=== PATIENT | female | born 1970 | race Caucasian/White ===

== ENCOUNTER 2017-01-07 16:09 | Emergency (ER) | payer OTHER ==
[~2017-01-07] VITALS: Ht 167.6 cm; Wt 54.4 kg
[2017-01-07 16:10] VITALS: BP 150/84; PULSE 92; RESP 19; TEMP 97.2; O2SAT 99
--- NOTE | 2017-01-07 16:10 | NUR ---
Patient triaged and placed in waiting room. VSS and patient appears in no acute distress at this time. Accompanied by FAMILY, awaiting available bed, and MD notified of need for MSE.
[2017-01-07] MEDS ORDERED: ONDANSETRON HCL 4 MG/2 ML VIAL IVP ONE (16:15)
[2017-01-07 16:32] LABS: BASOPHILS # (AUTO) 0.1 K/uL (0.0-0.2); BASOPHILS % (AUTO) 0.7 % (0.0-2.0); EOSINOPHILS # (AUTO) 0.1 K/uL (0.0-0.4); EOSINOPHILS % (AUTO) 0.6 % (0.0-4.0); HEMATOCRIT 37.6 % (36-48); HEMOGLOBIN 12.6 g/dL (12.0-16.0); LYMPHOCYTES % (AUTO) 11.2 % (20.5-51.5); MEAN CORPUSCULAR HEMOGLOBIN 31 pg (27-31); MEAN CORPUSCULAR HGB CONC 34 % (32-36); MEAN CORPUSCULAR VOLUME 91 fL (79.0-98.0); MONOCYTES # (AUTO) 0.4 K/uL (0.0-1.0); MONOCYTES % (AUTO) 4.6 % (1.7-9.3); NEUTROPHILS # (AUTO) 7.3 K/uL (1.8-7.7); NEUTROPHILS % (AUTO) 82.9 % (40.0-70.0); PLATELET COUNT (AUTO) 236 K/uL (130-430); RED BLOOD CELL COUNT(AUTO) 4.11 MIL/uL (4.2-6.2); RED CELL DISTRIBUTION WIDTH 14.1 % (9.0-15.0); WHITE BLOOD COUNT (AUTO) 8.9 K/uL (4.8-10.8)
--- NOTE | 2017-01-07 16:34 | NUR ---
BROUGHT BACK TO BED #5 AND REPORT GIVEN TO LUCINA
--- NOTE | 2017-01-07 16:40 | NUR ---
ASHLIE ROMAN AT BEDSIDE FOR POC.
[2017-01-07 16:49] LABS: POTASSIUM 3.5 mmol/L (3.5-5.1)
[2017-01-07 16:57] LABS: CALCIUM 8.7 mg/dL (8.4-11.0); CREATININE 0.76 mg/dL (0.55-1.30)
[2017-01-07 17:02] LABS: ALBUMIN 3.8 g/dL (3.4-4.8); TOTAL BILIRUBIN 0.3 mg/dL (0.0-1.0); TOTAL PROTEIN, SERUM 6.9 g/dL (6.4-8.3)
[2017-01-07 17:06] LABS: BILIRUBIN,URINE NEGATIVE (NEGATIVE); BLOOD, URINE 3+ (NEGATIVE); CLARITY/URINE HAZY (CLEAR); COLOR,URINE RED (YELLOW); GLUCOSE,URINE NEGATIVE (NEGATIVE); KETONES,URINE NEGATIVE (NEGATIVE); LEUKOCYTE ESTERASE ,URINE 1+ (NEGATIVE); NITRITE, URINE NEGATIVE (NEGATIVE); PROTEIN URINE TRACE (NEGATIVE); UROBILINOGEN,URINE 0.2 (0.2-1.0)
[2017-01-07] MEDS ORDERED: NACL 0.9% 1,000 ML IV ONE (17:15)
--- NOTE | 2017-01-07 17:15 | NUR ---
PT TOLERATING IVF AMD MEDICATION.
[2017-01-07 17:17] LABS: RBC,URINE >100 /HPF (0-3)
[2017-01-07 17:18] LABS: BACTERIA,URINE FEW /HPF (None Seen); MUCUS,URINE None Seen /LPF (None Seen); WBC,URINE 0-3 /HPF (0-3)
--- NOTE | 2017-01-07 18:20 | NUR ---
ATTEMPTED TO DISCHARGE PT, PT STATES SHE DOES NOT FEEL WELL. WILL SEND ASHLIE ROMAN TO TALK TO PT
--- NOTE | 2017-01-07 18:24 | NUR ---
ASHLIE ROMAN AT BEDSIDE FOR RE-EVALUATION
[2017-01-07] MEDS ORDERED: LORazepam 1 MG TABLET PO ONE (18:30)
[2017-01-07 18:35] VITALS: BP 111/61; PULSE 78; RESP 16; TEMP 98; O2SAT 99
--- NOTE | 2017-01-07 18:35 | NUR ---
Patient given written and verbal discharge instructions and verbalizes understanding. ER MD discussed with patient the results and treatment provided. Patient in stable condition. ID arm band removed. IV catheter removed intact and dressing applied, no active bleeding. Rx of Zofran, Cipro given. Patient educated on pain management and to follow up with PMD. Pain Scale 3/10 chest pressure which Micaela DAILEY is aware of. Opportunity for questions provided and answered.
--- NOTE | 2017-01-07 18:35 | NUR ---
Note undone in EDM - 01/07/17 at 1905 by [email or web address] Patient given written and verbal discharge instructions and verbalizes understanding. ER discussed with patient the results and treatment provided. Patient in stable condition. ID arm band removed. IV catheter removed intact and dressing applied, no active bleeding. Rx of Shaquille Rubio given. Patient educated on pain management and to follow up with PMD. Pain Scale 3/10 chest pressure which Micaela DAILEY is aware of. Opportunity for questions provided and answered.
[2017-01-08] MEDS ORDERED: ONDA4TAB11 PO (16:17)
[2017-01-08] MEDS ORDERED: CIPR-211 PO (16:17)
== END 2017-01-07 18:35 | disposition home or self-care (01) ==
LOC: SED 16:09
DX: N39.0 Urinary tract infection, site not specified (principal); F41.9 Anxiety disorder, unspecified
CPT/HCPCS: 36415; 80053; 81000; 81025; 84443; 85025; 87086; 96361; 96374; 99284; J2405; J7030

== ENCOUNTER 2017-01-08 13:19 | Inpatient (IN) | payer OTHER ==
[~2017-01-08] VITALS: Ht 167.6 cm; Wt 54.4 kg
[2017-01-08 13:52] VITALS: BP_SYST 131
[2017-01-08] MEDS ORDERED: NACL 0.9% 1,000 ML IV ONE (14:18)
[2017-01-08 14:39] LABS: BASOPHILS # (AUTO) 0.1 K/uL (0.0-0.2); BASOPHILS % (AUTO) 1.2 % (0.0-2.0); EOSINOPHILS % (AUTO) 0.5 % (0.0-4.0); HEMATOCRIT 35.2 % (36-48); HEMOGLOBIN 11.7 g/dL (12.0-16.0); LYMPHOCYTES % (AUTO) 16.5 % (20.5-51.5); MEAN CORPUSCULAR HEMOGLOBIN 30 pg (27-31); MEAN CORPUSCULAR HGB CONC 33 % (32-36); MEAN CORPUSCULAR VOLUME 91 fL (79.0-98.0); MONOCYTES # (AUTO) 0.4 K/uL (0.0-1.0); MONOCYTES % (AUTO) 6.3 % (1.7-9.3); NEUTROPHILS # (AUTO) 4.8 K/uL (1.8-7.7); NEUTROPHILS % (AUTO) 75.5 % (40.0-70.0); PLATELET COUNT (AUTO) 209 K/uL (130-430); RED BLOOD CELL COUNT(AUTO) 3.87 MIL/uL (4.2-6.2); RED CELL DISTRIBUTION WIDTH 14.2 % (9.0-15.0); WHITE BLOOD COUNT (AUTO) 6.3 K/uL (4.8-10.8)
[2017-01-08 14:46] LABS: ANION GAP 5 (5-15); CALCIUM 8.5 mg/dL (8.4-11.0); CHLORIDE 109 mmol/L (98-107); CREATININE 0.66 mg/dL (0.55-1.30); GLUCOSE 111 mg/dL (70-99); POTASSIUM 3.5 mmol/L (3.5-5.1); SODIUM SERUM 139 mmol/L (136-145); UREA NITROGEN, BLOOD 11 mg/dL (8-21)
[2017-01-08 14:51] LABS: ALANINE AMINOTRANSFERASE 20 U/L (12-78); ALBUMIN 3.7 g/dL (3.4-4.8); ASPARTATE AMINOTRANSFERASE 13 U/L (10-37); LIPASE 314 U/L (73-393); TOTAL BILIRUBIN 0.3 mg/dL (0.0-1.0); TOTAL PROTEIN, SERUM 6.6 g/dL (6.4-8.3)
[2017-01-08 14:53] LABS: BILIRUBIN,URINE NEGATIVE (NEGATIVE); BLOOD, URINE 3+ (NEGATIVE); CLARITY/URINE HAZY (CLEAR); COLOR,URINE YELLOW (YELLOW); GLUCOSE,URINE NEGATIVE (NEGATIVE); KETONES,URINE NEGATIVE (NEGATIVE); LEUKOCYTE ESTERASE ,URINE NEGATIVE (NEGATIVE); NITRITE, URINE NEGATIVE (NEGATIVE); PH,URINE 7.5 (5.0-8.0); PROTEIN URINE NEGATIVE (NEGATIVE); UROBILINOGEN,URINE 0.2 (0.2-1.0)
[2017-01-08 15:13] LABS: BACTERIA,URINE FEW /HPF (None Seen); MUCUS,URINE None Seen /LPF (None Seen); RBC,URINE >100 /HPF (0-3); WBC,URINE NONE SEEN /HPF (0-3)
[2017-01-08] MEDS ORDERED: COMMUNICATION ORDER XX ONE (16:00)
[2017-01-08] MEDS ORDERED: ONDA4TAB11 PO (16:17)
[2017-01-08] MEDS ORDERED: CIPR-211 PO (16:17)
[2017-01-08 16:44] VITALS: BP_SYST 132
[2017-01-08] MEDS: ONDANSETRON HCL 4 MG/2 ML VIAL IVP PRN ×2 (17:31→23:15)
[2017-01-08 19:30] VITALS: BP_SYST 126
[2017-01-08] MEDS ORDERED: TEMAZEPAM 7.5 MG CAPSULE PO PRN (19:45)
[2017-01-08] MEDS: ACETAMINOPHEN 500 MG TABLET PO PRN (20:03)
[2017-01-08] MEDS: NACL 0.9% 1,000 ML IV SCH (20:04)
[2017-01-08] MEDS ORDERED: FAMOTIDINE 20 MG TABLET PO SCH (21:00)
[2017-01-09] VITALS (7 sets, daily range): BP systolic 103–126
[2017-01-09] MEDS ORDERED: MIRTAZAPINE 15 MG TABLET PO PRN (00:30)
[2017-01-09] MEDS: ACETAMINOPHEN 500 MG TABLET PO PRN (03:08)
[2017-01-09] MEDS ORDERED: traZODone HCL 50 MG TABLET (DESYREL) PO PRN (06:45)
[2017-01-09 06:50] LABS: CALCIUM 8.3 mg/dL (8.4-11.0); CREATININE 0.72 mg/dL (0.55-1.30); POTASSIUM 3.4 mmol/L (3.5-5.1)
[2017-01-09] MEDS: FAMOTIDINE 20 MG TABLET PO SCH ×2 (08:44→21:10)
[2017-01-09] MEDS: POLYETHYLENE GLYCOL 3350, 17 GM/ POWD.PACK PO SCH (08:44)
[2017-01-09] MEDS: NACL 0.9% 1,000 ML IV SCH ×2 (10:08→21:13)
[2017-01-09] MEDS ORDERED: MAGNESIUM CITRATE 300 ML ORAL SOLUTION PO ONE (13:30)
[2017-01-09] MEDS ORDERED: MINERAL OIL 30 ML UDC PO SCH (13:30)
[2017-01-09] MEDS ORDERED: MINERAL OIL 30 ML UDC PO ONE (14:15)
[2017-01-09] MEDS ORDERED: LORazepam 1 MG TABLET PO PRN ×2 (17:45)
[2017-01-09] MEDS: MINERAL OIL 30 ML UDC PO SCH ×2 (17:45→23:38)
[2017-01-09 17:50] LABS: HCG,QUAL RESULT NEGATIVE (NEGATIVE)
[2017-01-09] MEDS ORDERED: DULoxetine HCL 30 MG CAPSULE.DR (CYMBALTA) PO SCH (21:00)
[2017-01-10 00:05] VITALS: BP_SYST 125
[2017-01-10 04:51] VITALS: BP_SYST 134
[2017-01-10] MEDS: MINERAL OIL 30 ML UDC PO SCH ×2 (05:45→12:39)
[2017-01-10 07:47] VITALS: BP_SYST 121
[2017-01-10] MEDS ORDERED: SIMETHICONE 40 MG/0.6 ML ML ONE (08:02)
[2017-01-10] MEDS: MIDAZOLAM HCL 5 MG/5 ML VIAL ONE ×5 (08:13→08:25)
[2017-01-10] MEDS: fentaNYL CITRATE/PF 100 MCG/2 ML AMP ONE ×3 (08:13→08:22)
[2017-01-10] MEDS: POLYETHYLENE GLYCOL 3350, 17 GM/ POWD.PACK PO SCH (09:00)
[2017-01-10 11:52] VITALS: BP_SYST 105
[2017-01-10] MEDS: FAMOTIDINE 20 MG TABLET PO SCH (12:37)
[2017-01-10] MEDS: ACETAMINOPHEN 500 MG TABLET PO PRN ×2 (12:48→17:22)
[2017-01-10 14:20] VITALS: BP_SYST 119
[2017-01-10 16:00] VITALS: BP_SYST 119
== END 2017-01-10 18:40 | disposition home or self-care (01) | DRG 392 ==
LOC: SED 13:19 → SMU 15:54
PROVIDERS: ADMIT Family Medicine; ATTEND Family Medicine
PROC: 0DB68ZX Excision of Stomach, Via Natural or Artificial Opening Endoscopic, Diagnostic (ICD-10-PCS; 2017-01-10)
PROC: 0DB98ZX Excision of Duodenum, Via Natural or Artificial Opening Endoscopic, Diagnostic (ICD-10-PCS; principal; 2017-01-10 08:00)
DX: K29.70 Gastritis, unspecified, without bleeding (principal); N39.0 Urinary tract infection, site not specified; F32.9 Major depressive disorder, single episode, unspecified; E86.0 Dehydration; F41.1 Generalized anxiety disorder; K56.41 Fecal impaction; Z90.49 Acquired absence of other specified parts of digestive tract
CPT/HCPCS: 36415; 43239; 74000-TC; 76700-TC; 80048; 80053; 81000-TC; 81025; 83690-TC; 84703; 85025; 87081; 88305; 88312; 88313; 96360; 99285; J2250; J2405; J3010; J7030